=== PATIENT | male | born 2005 | race Hispanic/Latino ===

== ENCOUNTER 2024-03-14 06:33 | Emergency (ER) | payer OTHER, SELFPAY ==
[2024-03-14] MEDS ORDERED: Ibuprofen 200 MG TAB ONE (07:25)
== END 2024-03-14 08:27 | disposition home or self-care (01) ==
LOC: CSHERS 06:33
DX: S40.011A Contusion of right shoulder, initial encounter (principal); Z55.6 Problems related to health literacy; W50.0XXA Accidental hit or strike by another person, initial encounter; Y93.66 Activity, soccer